=== PATIENT | male | born 1975 | race Caucasian/White ===

== ENCOUNTER 2017-06-07 07:22 | Emergency (ER) | payer SELFPAY ==
[2017-06-07 07:29] VITALS: BP 145/105
--- NOTE | 2017-06-07 07:44 | UC ---
Throat Pain/Nasal Cali HPI - HPI Summary HPI Summary: [address] AND PAIN WITH SWALLOWING. HAD ELEVATED TEMP 99.2 AND CHILLS AT HOME. NO COUGH, EAR PAIN, N/V/D. - History of Current Complaint Chief Complaint: UCGeneralIllness Stated Complaint: THROAT PAIN Time Seen by Provider: 06/07/17 07:35 Hx Obtained From: Patient Onset/Duration: Gradual Onset, Lasting Days, Still Present Severity: Moderate Pain Intensity: 6 Pain Scale Used: 0-10 Numeric Cough: None Associated Signs & Symptoms: Positive: Fever - Allergies/Home Medications Allergies/Adverse Reactions: Allergies Allergy/AdvReac Type Severity Reaction Status Date / Time Penicillins Allergy Hives Verified 06/07/17 07:29 Home Medications: Home Medications Ranitidine HCl [Zantac 75] 1 tab PO DAILY 06/07/17 [History Confirmed 06/07/17] PMH/Surg Hx/FS Hx/Imm Hx Previously Healthy: Yes - Surgical History Surgical History: Yes Surgery Procedure, Year, and Place: inguinal hernia 2009. lasik 2009 - Family History Known Family History: Positive: Hypertension - Social History Alcohol Use: Daily Alcohol Amount: 1/DAY Substance Use Type: Marijuana Smoking Status (MU): Light Every Day Tobacco Smoker Type: Cigarettes Amount Used/How Often: 4 CIG/DAY When Did the Patient Quit Smoking/Using Tobacco: 2012 - Immunization History Most Recent Influenza Vaccination: fall 2014 Review of Systems Constitutional: Fever, Chills ENT: Sore Throat Respiratory: Negative Cardiovascular: Negative Gastrointestinal: Negative All Other Systems Reviewed And Are Negative: Yes Physical Exam Triage Information Reviewed: Yes Appearance: Well-Appearing, No Pain Distress, Well-Nourished Vital Signs: Initial Vital Signs Temp 98.6 F 06/07/17 07:23 Pulse 72 06/07/17 07:23 Resp 16 06/07/17 07:23 BP 145/105 06/07/17 07:23 Pulse Ox 96 06/07/17 07:23 Vital Signs Reviewed: Yes Eyes: Positive: Conjunctiva Clear ENT: Positive: Hearing grossly normal, Pharyngeal erythema, TMs normal, Muffled/ hoarse voice Neck: Positive: Supple, Tenderness @ - SPFL CERVICAL LAD, Enlarged Nodes @ - SPFL CERVICAL LAD Respiratory Exam: Normal Cardiovascular Exam: Normal Abdomen Description: Positive: Soft Musculoskeletal: Positive: No Edema Neurological: Positive: Alert Psychological: Positive: Age Appropriate Behavior Skin: Negative: rashes Throat Pain/Nasal Course/Dx - Differential Dx/Diagnosis Provider Diagnoses: STREP PHARYNGITIS - CLINICAL DX Discharge - Discharge Plan Condition: Stable Disposition: HOME Prescriptions: Cephalexin CAP* [Keflex 500 CAP*] 500 mg PO BID #20 cap Patient Education Materials: Strep Throat (ED) Referrals: Smita RINALDI,Matthew Kohli [Primary Care Provider] - If Needed Additional Instructions: CLINICALLY UOU HAVE STREP SO WE WILL TREAT YOU SUCH. TAKE THE ANTIBIOTIC FOR THE FULL 10 DAYS. OTC CHLORASEPTIC OR CEPACOL LOZENGES FOR SORE THROAT NEEDED ONCE SYMPTOMS RESOLVED - NEW TOOTHBRUSH DO NOT SHARE FOOD, DRINK, UTENSILS
== END 2017-06-07 07:49 | disposition home or self-care (01) ==
LOC: UCEAST 07:22
DX: J02.0 Streptococcal pharyngitis (principal); Z87.891 Personal history of nicotine dependence
CPT/HCPCS: 99212; G0463

== ENCOUNTER 2019-02-20 16:00 | Emergency (ER) | payer OTHER ==
[2019-02-20 16:11] VITALS: BP 140/98
--- NOTE | 2019-02-20 17:32 | UC ---
Throat Pain/Nasal [place] HPI - HPI Summary HPI Summary: 43-year-old male present with two week history of sore throat. Denies fever, chills, nasal congestion, runny nose, ear pain, dysphagia, or cough. - History of Current Complaint Chief Complaint: UCGeneralIllness Stated Complaint: SORE THROAT Time Seen by Provider: 02/20/19 17:15 Hx Obtained From: Patient Pain Intensity: 3 - Allergies/Home Medications Allergies/Adverse Reactions: Allergies Allergy/AdvReac Type Severity Reaction Status Date / Time Penicillins Allergy Itching Verified 02/20/19 16:12 Home Medications: Home Medications Lisinopril TAB* [Prinivil TAB*] 10 mg PO DAILY 02/20/19 [History Confirmed 02/20] PMH/Surg Hx/FS Hx/Imm Hx Previously Healthy: Yes Cardiovascular History: Hypertension GI/ History: Gastroesophageal Reflux - Surgical History Surgical History: Yes Surgery Procedure, Year, and Place: inguinal hernia 2009. lasik 2009 - Family History Known Family History: Positive: Hypertension - Social History Occupation: Employed Full-time Lives: With Family Alcohol Use: Daily Alcohol Amount: 1/DAY Substance Use Type: Marijuana Smoking Status (MU): Light Every Day Tobacco Smoker Type: Cigarettes Amount Used/How Often: 4 CIG/DAY When Did the Patient Quit Smoking/Using Tobacco: 2012 - Immunization History Most Recent Influenza Vaccination: fall 2014 Review of Systems All Other Systems Reviewed And Are Negative: Yes Constitutional: Negative: Fever, Chills Skin: Negative: Rash Eyes: Negative: Drainage, Eye Redness ENT: Positive: Sore Throat. Negative: Nasal Discharge, Sinus Congestion, Sinus Pain/Tenderness Respiratory: Negative: Shortness Of Breath, Cough, Other Cardiovascular: Negative: Palpitations Gastrointestinal: Negative: Abdominal Pain, Vomiting, Diarrhea, Nausea Genitourinary: Positive: Negative Musculoskeletal: Positive: Negative Neurological: Positive: Negative Is Patient Immunocompromised?: No Physical Exam - Summary Physical Exam Summary: GENERAL APPEARANCE: Well developed, well nourished, alert and cooperative, and appears to be in no acute distress. EYES: Conjunctiva clear. No drainage. Vision is grossly intact. EARS: External auditory canals and tympanic membranes clear, hearing grossly intact. NOSE: No nasal discharge. THROAT: Pharyngeal erythema. Tonsils 2+ without exudate, or lesions. Uvula midline. Oral cavity normal. Teeth and gingiva in good general condition. NECK: Neck supple, non-tender. Mild anterior cervical lymphadenopathy. CARDIAC: Normal S1 and S2. No S3, S4 or murmurs. Rhythm is regular. There is no peripheral edema, cyanosis or pallor. Extremities are warm and well perfused. Capillary refill is less than 2 seconds. Peripheral pulses intact. LUNGS: Clear to auscultation without rales, rhonchi, wheezing or diminished breath sounds. ABDOMEN: Positive bowel sounds. Soft, nondistended, nontender. No guarding or rebound. No masses or hepatosplenomegally. MUSKULOSKELETAL: ROM intact to all extremities. No joint erythema or tenderness. Normal muscular development. Normal gait. SKIN: Skin normal color, texture and turgor with no lesions or eruptions. Triage Information Reviewed: Yes Vital Signs: Initial Vital Signs Temp 97.8 F 02/20/19 16:06 Pulse 67 02/20/19 16:06 Resp 16 02/20/19 16:06 BP 140/98 02/20/19 16:06 Pulse Ox 100 02/20/19 16:06 Vital Signs Reviewed: Yes Throat Pain/Nasal Course/Dx - Course Course Of Treatment: 43-year-old male present with two week history of sore throat. Denies fever, chills, nasal congestion, runny nose, ear pain, dysphagia, or cough. Afebrile. Vital signs stable. Exam remarkable for pharyngeal erythema, 2+ tonsils without exudate, and mild anterior cervical lymphadenopathy. Rapid strep test was positive. Patient is allergic with uncertain reaction therefore will treat for strep throat with a course of azithromycin as well as recommend symptomatic treatment. Is to follow-up with his primary care provider if symptoms do not improve in 5 days. Anticipatory guidance and warning symptoms were reviewed with the patient. Verbalizes understanding and agrees with plan of care. - Differential Dx/Diagnosis Differential Diagnosis/HQI/PQRI: Influenza, Pharyngitis, Tonsillitis, URI Provider Diagnosis: Strep pharyngitis Discharge - Sign-Out/Discharge Documenting (check all that apply): Patient Departure All imaging exams completed and their final reports reviewed: No Studies - Discharge Plan Condition: Stable Disposition: HOME Prescriptions: Azithromyxin GABRIEL (NF) [Z-Gabriel (Zithromax) 250 mg tabs #6] 2 tab PO .TODAY, THEN 1 DAILY #6 tab Patient Education Materials: Strep Throat (ED) Referrals: Smita RINALDI,Matthew Kohli [Primary Care Provider] - 5 Days (If no improvement.) Additional Instructions: Your rapid strep test in the clinic today was positive. We will start you on an antibiotic to treat the infection. Start azithromycin 2 tabs today the 1 tab a day for the next 4 days. After you have been on antibiotics for 3 days, throw out your toothbrush and replace with a new one to prevent reinfection. Drink plenty of fluids to avoid dehydration especially if you are running any fever. Use salt water gargles several times a day. Take over the counter acetaminophen (Tylenol) or ibuprofen (Advil, Motrin) according to directions as needed for pain or fever. You may also use Chloraseptic spray or Cepacol lonzenges according to directions which contain a numbing medication and can provide some temporary relief from your sore throat. Return here or follow up with your primary care provider in 5 days if symptoms do not improve. Seek immediate medical attention in the emergency room if you have fever greater than 100.5 F despite taking acetaminophen or ibuprofen, are unable to swallow or develop drooling, are unable to open your mouth fully, are unable to eat or drink, have pain that is not relieved with over the counter pain medication, or have any difficulty breathing. - Billing Disposition and Condition Condition: STABLE Disposition: Home
== END 2019-02-20 17:40 | disposition home or self-care (01) ==
LOC: UCEAST 16:00
DX: J02.0 Streptococcal pharyngitis (principal); B95.0 Streptococcus, group A, as the cause of diseases classified elsewhere; Z88.0 Allergy status to penicillin; I10 Essential (primary) hypertension; F17.210 Nicotine dependence, cigarettes, uncomplicated
CPT/HCPCS: 87651; 99212; G0463

== ENCOUNTER → 2019-02-23 02:48 | Emergency (ER) | payer OTHER ==
[~2019-02-23 02:48] MED LIST: Acetaminophen TAB* 325 MG PO ONE; Clindamycin 900 MG IVPREMIX(* 900 MG/50 ML SDV IV ONE; Dexamethasone IV* 4 MG/ML 1 ML (4 MG) IV SLOW PU ONE; Ketorolac INJ* 30 MG/ML 1 ML VIAL IV PUSH ONE; NS 0.9% 1000 ML** 1,000 ML IV ONE
--- NOTE | 2019-02-23 03:09 | ED ---
Throat Pain/Nasal Congestion - HPI Summary HPI Summary: Pt is a 43 y/o male brought in by EMS who presents to the ED c/o sore throat. 2 weeks ago he began to have cold symptoms, including sore throat, SOB, and fever. At 2:00 this morning he woke up with worsening throat pain, dysphagia, and difficulty breathing. Pain is rated a 6/10 in severity and is described as aching and burning. EMS noted stridor. He went to the and was diagnosed with strep throat. Pt was prescribed Zithromax, however his symptoms have not improved since. Pt was in [place] for the past two weeks. Vital signs while in room: HR 117 bpm, BP 154/103. He is a smoker. - History of Current Complaint Chief Complaint: EDRespiratoryDistress Time Seen by Provider: 02/23/19 02:52 Hx Obtained From: Patient Onset/Duration: Gradual Onset, Lasting Weeks - 2, Worse Since Severity: Moderate - 6/10 Associated Signs And Symptoms: Positive: Dysphagia Cough: None Related History: Smoking - Allergies/Home Medications Allergies/Adverse Reactions: Allergies Allergy/AdvReac Type Severity Reaction Status Date / Time Penicillins Allergy Itching Verified 02/20/19 16:12 PMH/Surg Hx/FS Hx/Imm Hx Cardiovascular History: Reports: Hx Hypertension Respiratory History: Denies: Hx Asthma - Surgical History Surgery Procedure, Year, and Place: inguinal hernia 2009. las2009 Infectious Disease History: No Infectious Disease History: Reports: Traveled Outside the [place] in Last 30 Days Denies: Hx Clostridium Difficile, Hx Hepatitis, Hx Human Immunodeficiency Virus (HIV), Hx of Known/Suspected MRSA, Hx Shingles, Hx Tuberculosis, Hx Known/ Suspected VRE, Hx Known/Suspected VRSA, History Other Infectious Disease - Family History Known Family History: Positive: Hypertension - Social History Alcohol Use: Daily Alcohol Amount: 1/DAY Hx Substance Use: Yes Substance Use Type: Reports: Marijuana Hx Tobacco Use: Yes Smoking Status (MU): Light Every Day Tobacco Smoker Type: Cigarettes Amount Used/How Often: 4 CIG/DAY Review of Systems Positive: Fever Positive: Sore Throat, Other - dysphagia Positive: Shortness Of Breath All Other Systems Reviewed And Are Negative: Yes Physical Exam - Summary Physical Exam Summary: VITAL SIGNS: Reviewed. GENERAL: Patient is a well-developed and nourished MALE who is lying comfortable in the stretcher. Patient is not in any acute respiratory distress. HEAD AND FACE: No signs of trauma. No ecchymosis, hematomas or skull depressions. No sinus tenderness. EYES: PERRLA, EOMI x 2, No injected conjunctiva, no nystagmus. EARS: Hearing grossly intact. Ear canals and tympanic membranes are within normal limits. MOUTH: Pharyngeal erythema, no exudate. NECK: Supple, trachea is midline, no JVD, no carotid bruit, no c-spine tenderness, upper cervical lymph node tenderness without swelling, neck with full ROM. CHEST: Symmetric, no tenderness at palpation LUNGS: Clear to auscultation bilaterally. No wheezing or crackles. CVS: Regular rate and rhythm, S1 and S2 present, no murmurs or gallops appreciated. ABDOMEN: Soft, non-tender. No signs of distention. No rebound no guarding, and no masses palpated. Bowel sounds are normal. EXTREMITIES: FROM in all major joints, no edema, no cyanosis or clubbing. NEURO: Alert and oriented x 3. No acute neurological deficits. Speech is normal and follows commands. SKIN: Dry and warm Triage Information Reviewed: Yes Vital Signs On Initial Exam: Initial Vitals Temp Pulse Resp BP Pulse Ox 100.3 F 118 20 154/103 99 02/23/19 02:55 02/23/19 02:55 02/23/19 02:55 02/23/19 02:55 02/23/19 02:55 Vital Signs Reviewed: Yes Diagnostics - Vital Signs Vital Signs Temp Pulse Resp BP Pulse Ox 02/23/19 02:55 100.3 F 118 20 154/103 99 - Laboratory Lab Statement: Any lab studies that have been ordered have been reviewed, and results considered in the medical decision making process. Re-Evaluation - Re-Evaluation First Eval Re-Evaluation Time: 04:35 Change: Improved Comment: Pt feels much better. EENT Course/Dx - Course Course Of Treatment: Pt is a 43 y/o male brought in by EMS who presents to the ED c/o sore throat, dysphagia, and difficulty breathing. He has been on Zithromax for 2 days without relief. A physical exam revealed pharyngeal erythema without exudate, upper cervical lymph node tenderness without swelling. In the course he was given Tylenol, Clindamycin, Decadron, Toradol, and fluids which improved his symptoms. Pt will be discharged with a final dx of pharyngitis. Pt is agreeable with this plan. - Diagnoses Provider Diagnoses: Pharyngitis Discharge - Sign-Out/Discharge Documenting (check all that apply): Patient Departure - Discharge Patient Received Moderate/Deep Sedation with Procedure: No - Discharge Plan Condition: Improved Disposition: HOME Prescriptions: Clindamycin Cap(NF) [Clindamycin Cap 300 mg Cap(NF)] 300 mg PO Q6H #30 cap predniSONE TAB* [Deltasone TAB*] 50 mg PO DAILY #5 tab Patient Education Materials: Pharyngitis (ED) Referrals: Smita RINALDI,Matthew Kohli [Primary Care Provider] - (1-2 days) Additional Instructions: PLEASE RETURN TO THE ED IMMEDIATELY FOR WORSENING OR CONCERNING SYMPTOMS. - Attestation Statements Document Initiated by Scribe: Yes Documenting Scribe: Brandi Santoyo Provider For Whom Umeshibe is Documenting (Include Credential): Malaika Fields MD Scribe Attestation: IBrandi, scribed for Malaika Fields MD on 02/23/19 at 0441. Status of Scribe Document: Ready
[2019-02-23 05:19] VITALS: BP 133/81
== END | disposition home or self-care (01) ==
LOC: ED 02:48
DX: J02.9 Acute pharyngitis, unspecified (principal); F17.210 Nicotine dependence, cigarettes, uncomplicated; Z88.0 Allergy status to penicillin
CPT/HCPCS: 96365; 96375; 99283; A9270-GY; J1100; J1885

== ENCOUNTER 2019-02-24 11:10 | Emergency (ER) | payer OTHER ==
[2019-02-24 11:33] VITALS: BP 143/86
--- NOTE | 2019-02-24 12:10 | UC ---
Throat Pain/Nasal [place] HPI - HPI Summary HPI Summary: 43-year-old male comes in with a chief complaint of sore throat. Patient's had a sore throat for about 2-1/2-3 weeks. 5 days ago came here to clinic and was diagnosed with strep throat and started on azithromycin. He is pain continued and he felt like his throat was closing and he went to the emergency department in the [facility] of February 23, 2019. There he was treated with IV Decadron Toradol IV fluids and started on clindamycin. His breathing and swallowing had improved. Went home on prednisone 50 mg by mouth daily and also on clindamycin. Been using ibuprofen and Tylenol for pain. Overnight the pain is getting worse in his throat. It hurts to swallow and is having a hard time taking in his medications food and liquids. He feels like the swelling is less than [address] here he did cough up one of his Stas is trying to swallow which in turn made swallowing easily her. At this time he is not worried about airway compromise. - History of Current Complaint Chief Complaint: UCRespiratory Stated Complaint: SORE THROAT Time Seen by Provider: 02/24/19 11:50 Pain Intensity: 9 - Allergies/Home Medications Allergies/Adverse Reactions: Allergies Allergy/AdvReac Type Severity Reaction Status Date / Time Penicillins Allergy Itching Verified 02/24/19 11:29 PMH/Surg Hx/FS Hx/Imm Hx Previously Healthy: Yes Cardiovascular History: Hypertension - Surgical History Surgical History: Yes Surgery Procedure, Year, and Place: inguinal hernia 2009. [facility] 2009 - Family History Known Family History: Positive: None, Hypertension - Social History Alcohol Use: Daily Alcohol Amount: 1/DAY Substance Use Type: Marijuana Smoking Status (MU): Former Smoker Type: Cigarettes Amount Used/How Often: 4 CIG/DAY When Did the Patient Quit Smoking/Using Tobacco: 2012 Household Exposure Type: Cigarettes - Immunization History Most Recent Influenza Vaccination: fall 2014 Review of Systems All Other Systems Reviewed And Are Negative: Yes Constitutional: Positive: Fever Skin: Positive: Negative Eyes: Positive: Negative ENT: Positive: Sore Throat Respiratory: Positive: Other - see hpi Cardiovascular: Positive: Negative Gastrointestinal: Positive: Negative Motor: Positive: Negative Neurovascular: Positive: Negative Musculoskeletal: Positive: Negative Neurological: Positive: Negative Psychological: Positive: Negative Is Patient Immunocompromised?: No Physical Exam Triage Information Reviewed: Yes Appearance: Well-Appearing, Well-Nourished, Pain Distress - mild with swallowing Vital Signs: Initial Vital Signs Temp 99.4 F 02/24/19 11:22 Pulse 82 02/24/19 11:22 Resp 18 02/24/19 11:22 BP 143/86 02/24/19 11:22 Pulse Ox 97 02/24/19 11:22 Vital Signs Reviewed: Yes Eye Exam: Normal Eyes: Positive: Conjunctiva Clear ENT: Positive: Pharyngeal erythema, Tonsillar swelling - 2+ b/l, Uvula midline, Other - no peritonsillar abscess on exam. Negative: Muffled voice, Hoarse voice Neck: Positive: Supple Respiratory: Positive: Lungs clear, Normal breath sounds, No respiratory distress. Negative: Stridor Cardiovascular: Positive: RRR Musculoskeletal Exam: Normal Musculoskeletal: Positive: Strength Intact, ROM Intact Neurological Exam: Normal Neurological: Positive: Alert, Muscle Tone Normal Psychological Exam: Normal Psychological: Positive: Age Appropriate Behavior Skin Exam: Normal Throat Pain/Nasal Course/Dx - Course Course Of Treatment: No evidence of airway compromise in clinic. Patient feels like the swelling is improved after his emergency department visit and starting on the steroids and clindamycin. I prescribed hydrocodone to be used as needed and also Magic mouthwash including lidocaine for swish and swallow 4 times a day as needed. Also [id number] medications as needed. Patient knows that if he has any further difficulty with swallowing or breathing is to go directly to the emergency department. If his symptoms do not improve completely the plan is to follow-up with ENT. - Differential Dx/Diagnosis Provider Diagnosis: Sore throat Discharge - Sign-Out/Discharge Documenting (check all that apply): Patient Departure All imaging exams completed and their final reports reviewed: No Studies - Discharge Plan Condition: Stable Disposition: HOME Prescriptions: HYDROcodone/ACETAMIN 5-325 MG* [[place] 5-325 TAB*] 1 tab PO Q4H PRN #20 tab MDD 6 PRN Reason: Pain Magic Mouth Was-ANGEL/MAAL/LIDO* 5 ml SWISH SWAL QID PRN #120 ml MDD 20ML PRN Reason: Pain Patient Education Materials: Pharyngitis (ED) Referrals: Smita RINALDI,Matthew Kohli [Primary Care Provider] - Ty Moralez MD [Medical Doctor] - Additional Instructions: FOLLOW UP WITH ENT IF NOT COMPLETELY IMPROVED. GO TO THE EMERGENCY DEPARTMENT FOR WORSENING OF YOUR CONDITION; DIFFICULTY WITH SWALLOWING OR BREATHING, FEVER, YOU FEEL ILL OR QUESTIONS OR CONCERNS. - Billing Disposition and Condition Condition: STABLE Disposition: Home
== END 2019-02-24 12:21 | disposition home or self-care (01) ==
LOC: UCEAST 11:10
DX: J02.9 Acute pharyngitis, unspecified (principal); Z87.891 Personal history of nicotine dependence; I10 Essential (primary) hypertension; Z88.0 Allergy status to penicillin
CPT/HCPCS: 99212; G0463

== ENCOUNTER 2019-06-09 08:07 | Emergency (ER) | payer OTHER ==
[2019-06-09 08:18] VITALS: BP 118/89
--- NOTE | 2019-06-09 08:23 | UC ---
Throat Pain/Nasal Cali HPI - HPI Summary HPI Summary: 43-year-old male presents with 4 day history of sore throat. Denies fever, chills, dysphagia, ear pain, nasal congestion, runny nose, cough, abdominal pain , nausea, or vomiting. - History of Current Complaint Chief Complaint: UCGeneralIllness Stated Complaint: THROAT PAIN Time Seen by Provider: 06/09/19 08:17 Hx Obtained From: Patient Pain Intensity: 2 - Allergies/Home Medications Allergies/Adverse Reactions: Allergies Allergy/AdvReac Type Severity Reaction Status Date / Time Penicillins Allergy Itching Verified 06/09/19 08:12 PMH/Surg Hx/FS Hx/Imm Hx Cardiovascular History: Hypertension GI/ History: Gastroesophageal Reflux - Surgical History Surgical History: Yes Surgery Procedure, Year, and Place: inguinal hernia 2009. lasik 2009 - Family History Known Family History: Positive: Hypertension - Social History Occupation: Employed Full-time Lives: With Family Alcohol Use: Daily Alcohol Amount: 1/DAY Substance Use Type: Marijuana Substance Use Comment - Amount & Last Used: occasional Smoking Status (MU): Light Every Day Tobacco Smoker Type: Cigarettes Amount Used/How Often: 1 PPW When Did the Patient Quit Smoking/Using Tobacco: 2012 Household Exposure Type: Cigarettes - Immunization History Most Recent Influenza Vaccination: fall 2014 Review of Systems All Other Systems Reviewed And Are Negative: Yes Constitutional: Negative: Fever, Chills Skin: Negative: Rash Eyes: Negative: Drainage, Eye Redness ENT: Positive: Sore Throat. Negative: Ear Ache, Nasal Discharge, Sinus Congestion, Sinus Pain/Tenderness Respiratory: Negative: Cough Cardiovascular: Positive: Negative Gastrointestinal: Negative: Abdominal Pain, Vomiting, Nausea Genitourinary: Positive: Negative Musculoskeletal: Positive: Negative Neurological: Positive: Negative Psychological: Positive: Negative Is Patient Immunocompromised?: No Physical Exam - Summary Physical Exam Summary: GENERAL APPEARANCE: Well developed, well nourished, alert and cooperative, and appears to be in no acute distress. EYES: Conjunctiva clear. No drainage. PERRL, EOM intact. Vision is grossly intact. EARS: External auditory canals and tympanic membranes clear, hearing grossly intact. NOSE: No nasal discharge. THROAT: Pharyngeal erythema. 2+ tonsils without exudate or lesions. Uvula midline. Oral cavity normal. Teeth and gingiva in good general condition. NECK: Neck supple, non-tender with mild anterior cervical lymphadenopathy. CARDIAC: Normal S1 and S2. No S3, S4 or murmurs. Rhythm is regular. There is no peripheral edema, cyanosis or pallor. Extremities are warm and well perfused. Capillary refill is less than 2 seconds. Peripheral pulses intact. LUNGS: Clear to auscultation without rales, rhonchi, wheezing or diminished breath sounds. ABDOMEN: Positive bowel sounds. Soft, nondistended, nontender. No guarding or rebound. No masses or hepatosplenomegally. MUSKULOSKELETAL: ROM intact to all extremities. No joint erythema or tenderness. Normal muscular development. Normal gait. SKIN: Skin normal color, texture and turgor with no lesions or eruptions. Triage Information Reviewed: Yes Vital Signs: Initial Vital Signs Temp 97.8 F 06/09/19 08:13 Pulse 57 06/09/19 08:13 Resp 16 06/09/19 08:13 BP 118/89 06/09/19 08:13 Pulse Ox 97 06/09/19 08:13 Vital Signs Reviewed: Yes Throat Pain/Nasal Course/Dx - Course Course Of Treatment: 43-year-old male presents with 4 day history of sore throat. Denies fever, chills, dysphagia, ear pain, nasal congestion, runny nose, cough, abdominal pain , nausea, or vomiting. Afebrile. Vital signs stable. Patient had pharyngeal erythema, 2+ tonsils without exudate, mild anterior cervical lymphadenopathy and otherwise unremarkable exam. Rapid strep test was positive. Patient is penicillin allergic and recommended treatment with a azithromycin however the patient states that he had an episode of strep throat approximately 3 months ago that he felt was ineffectively treated by a azithromycin and is requesting treatment with clindamycin. He is to take clindamycin 300 mg 3 times a day for 10 days. He is to follow-up with his primary care provider in 3-5 days if symptoms are not improving. Anticipatory guidance and warning symptoms were reviewed with the patient. Verbalizes understanding and agrees with plan of care. - Differential Dx/Diagnosis Differential Diagnosis/HQI/PQRI: Pharyngitis, Sinusitis, Tonsillitis, URI Provider Diagnosis: Strep pharyngitis Discharge - Sign-Out/Discharge Documenting (check all that apply): Patient Departure All imaging exams completed and their final reports reviewed: No Studies - Discharge Plan Condition: Stable Disposition: HOME Prescriptions: Clindamycin HCl 300 mg PO TID #30 capsule Patient Education Materials: Strep Throat (ED) Referrals: Smita RINALDI,Matthew Kohli [Primary Care Provider] - Additional Instructions: Your rapid strep test in the clinic today was positive. We will start you on an antibiotic to treat the infection. Start clindamycin 300 mg 1 tab three times a day for 10 days. After you have been on antibiotics for 3 days, throw out your toothbrush and replace with a new one to prevent reinfection. Drink plenty of fluids to avoid dehydration especially if you are running any fever. Use salt water gargles several times a day. Take over the counter acetaminophen (Tylenol) or ibuprofen (Advil, Motrin) according to directions as needed for pain or fever. You may also use Chloraseptic spray or Cepacol lonzenges according to directions which contain a numbing medication and can provide some temporary relief from your sore throat. Return here or follow up with your primary care provider in 3-5 days if symptoms do not improve. Seek immediate medical attention in the emergency room if you have fever greater than 100.5 F despite taking acetaminophen or ibuprofen, are unable to swallow or develop drooling, are unable to open your mouth fully, are unable to eat or drink, have pain that is not relieved with over the counter pain medication, have any difficulty breathing, or any worsening of symptoms. - Billing Disposition and Condition Condition: STABLE Disposition: Home - Attestation Statements Provider Attestation: I was available for consult. This patient was seen by the KENNETH. The patient was not presented to, seen by, or examined by me. -Steven
== END 2019-06-09 08:49 | disposition home or self-care (01) ==
LOC: UCEAST 08:07
DX: J02.0 Streptococcal pharyngitis (principal); Z88.0 Allergy status to penicillin; I10 Essential (primary) hypertension; F17.210 Nicotine dependence, cigarettes, uncomplicated
CPT/HCPCS: 87651; 99212; G0463

== ENCOUNTER 2019-06-24 14:55 | Emergency (ER) | payer OTHER ==
--- NOTE | 2019-06-24 15:06 | UC ---
Throat Pain/Nasal Cali HPI - HPI Summary HPI Summary: 43 yo male presents with sore throat. He was seen here on 06/09 and had a sore throat with positive strep test. He was treated with clindamycin, but says he skipped 4 days because he misplaced his prescription. He found it and resumed it for the 4 days he missed. Last dose of anbx was 5 days ago. He is still having a sore throat, but says it is improved. He is eating, drinking, and tolerating po well. Denies fever, chills, sinus symptoms, cough, rash, abdominal pain, n/v. Of note, his blood pressure is quite high today. He does have a hx of HTN and is being treated with lisinopril. He took his medication this morning as usual. He saw his PCP a week ago and tells me that his BP was normal. Looking back at his last 2 visits in the , his BP has been elevated, but only mildly so. He is having no headache, dizziness, vision changes, weakness, numbness, SOB, chest pain. - History of Current Complaint Stated Complaint: POSS STREP STILL Time Seen by Provider: 06/24/19 15:06 Hx Obtained From: Patient Onset/Duration: Gradual Onset Severity: Moderate Pain Intensity: 5 Pain Scale Used: 0-10 Numeric - Allergies/Home Medications Allergies/Adverse Reactions: Allergies Allergy/AdvReac Type Severity Reaction Status Date / Time Penicillins Allergy Itching Verified 06/24/19 15:09 PMH/Surg Hx/FS Hx/Imm Hx Cardiovascular History: Hypertension GI/ History: Gastroesophageal Reflux - Surgical History Surgical History: Yes Surgery Procedure, Year, and Place: inguinal hernia 2009. lasik 2009 - Family History Known Family History: Positive: Hypertension - Social History Lives: With Family Alcohol Use: Daily Alcohol Amount: 1/DAY Substance Use Type: Marijuana Substance Use Comment - Amount & Last Used: occasional Smoking Status (MU): Light Every Day Tobacco Smoker Type: Cigarettes Amount Used/How Often: 1 PPW When Did the Patient Quit Smoking/Using Tobacco: 2012 Household Exposure Type: Cigarettes - Immunization History Most Recent Influenza Vaccination: fall 2014 Review of Systems All Other Systems Reviewed And Are Negative: Yes Constitutional: Positive: Negative Skin: Positive: Negative Eyes: Positive: Negative ENT: Positive: Sore Throat Respiratory: Positive: Negative Cardiovascular: Positive: Negative Neurovascular: Positive: Negative Neurological: Positive: Negative Psychological: Positive: Negative Physical Exam - Summary Physical Exam Summary: GENERAL: NAD. WDWN. No pain distress. SKIN: No rashes, sores, lesions, or open wounds. HEENT: Head: AT/NC Eyes: Conjunctiva clear without inflammation or discharge. Ears: Hearing grossly normal. TMs intact, no bulging, erythema, or edema. Nose: Nasal mucosa pink and moist. NTTP maxillary and frontal sinus. Throat: Posterior oropharynx mild erythema and 2+ tonsillar enlargement. No exudates. Uvula midline. No hoarse voice or muffled voice. NECK: Supple. Left tonsillar LAD mild TTP. CHEST: CTAB. No r/r/w. No accessory muscle use. Breathing comfortably and in no distress. CV: RRR. Without m/r/g. Pulses intact. Cap refill <2seconds NEURO: A&Ox3. 3 word recall, remote, recent memory, ability to follow 2-step directions, and attention intact. CN: II: Peripheral christianson intact. Vision normal. III, IV, : EOMI. No nystagmus. PERRLA. V: Sensations intact and symmetric. Opens mouth and clenches teeth. VII: No facial asymmetry. Forehead wrinkles. Grins, shuts eyes, frowns, puffs cheeks. VIII: Hearing intact to finger rub. IX, X: Swallows and coughs. Uvula midline. XI: Shrugs shoulders. Turns head against resistance. XII: No tongue deviation. Hdsumt-dy-vajf are intact. Gait with normal base. Romberg: maintains balance, no pronator drift. Normal speech. No facial drooping. PSYCH: Age appropriate behavior. Triage Information Reviewed: Yes Vital Signs: Vital Signs: Temp Pulse Resp BP Pulse Ox 98.8 F 69 16 181/117 99 06/24/19 15:05 06/24/19 15:05 06/24/19 15:05 06/24/19 15:05 06/24/19 15:05 Laboratory Tests 06/24/19 15:16 Group A Strep Rapid Positive A Vital Signs Reviewed: Yes Throat Pain/Nasal Course/Dx - Course Course Of Treatment: POC strep positive. Will treat with keflex for 10 days. Regarding his elevated BP - he is currently asymptomatic. Recheck BP was similar. He saw his PCP 1 week ago and BP was "good" per pt. His last 2 visits here at the his BP was only slightly elevated. He states that he's had a stressful day so far today and blames today's events on his BP. He has an electronic BP cuff at home - I recommended that he recheck this tonight and tomorrow morning and if still elevated to call his PCP. If he becomes symptomatic such as headache, dizziness, numbness, weakness, SOB, or chest pain to go to the ER immediately. - Differential Dx/Diagnosis Provider Diagnosis: Strep throat, HTN (hypertension) Discharge - Sign-Out/Discharge Documenting (check all that apply): Patient Departure All imaging exams completed and their final reports reviewed: No Studies - Discharge Plan Condition: Stable Disposition: HOME Prescriptions: Cephalexin CAP* [Keflex CAP*] 500 mg PO BID #20 cap Patient Education Materials: Strep Throat (ED) Referrals: Smita RINALDI,Matthew Kohli [Primary Care Provider] - Ty Moralez MD [Medical Doctor] - As Soon As Possible Additional Instructions: If you develop a fever, shortness of breath, chest pain, new or worsening symptoms - please call your PCP or go to the ED immediately. Your blood pressure was high at todays visit. Please see your primary provider within 4 weeks for recheck and re-evaluation. -- If you develop a headache, dizziness, weakness, numbness, shortness of breath , or chest pain - please go to the ER immediately Please call ENT at the number below to schedule an appointment for a recheck of your sore throat - Billing Disposition and Condition Condition: STABLE Disposition: Home - Attestation Statements Provider Attestation: I was available for consult. This patient was seen by the KENNETH. The patient was not presented to, seen by, or examined by me. -Steven
[2019-06-24 15:09] VITALS: BP 181/117
--- OUTSIDE RECORDS SUMMARY | 2019-06-25 01:24 | XMS REPORT | Continuity of Care Document ---
:1975 External Reference #:[id number] Author Name Matthew Ordoñez MD Address [address] [place] [address] Problems Active Problems Provider Date Migraine without aura, not refractory Matthew Ordoñez MD Onset: 08/24/2002 Gastroesophageal reflux disease Matthew Ordoñez MD Onset: 07/05/2018 Social History Type Date Description Comments Sex Unknown Tobacco Use Start: Unknown End: Quit Unknown Tobacco Use Start: Unknown End: Former Cigarette Smoker Unknown 5-10 Cigarettes Daily Smoking Status Reviewed: 01/12/14 Quit ETOH Use Occasionally consumes 1 drink daily alcohol Seat Belt/Car Seat Always uses seat belt Allergies, Adverse Reactions, Alerts Active Allergies Reaction Severity Comments Date Penicillin rash 08/24/2002 Medications Active Medications SIG Qnty Indications Ordering Provider Date Lisinopril 1 by mouth every 30tabs I10 Matthew Ordoñez 01/17/2019 10mg Tablets day htn Xanax 1 tab by mouth 1 14tabs F41.9 Matthew Ordoñez 05/05/2017 1mg Tablets hour before flying may be repeated after 6 hours Zyrtec Allergy 1 by mouth every Unknown 10mg day as needed Tablets Zantac 150 Maximum 1 tab daily gerd 90tabs Matthew Ordoñez Strength 150mg Tablets Clindamycin HCL 1 by mouth three Unknown 300mg times a day for Capsules 10 days Immunizations CPT Code Status Date Vaccine Lot # [id number] Given 08/03/2018 Flu/Fluzone Iiv4 3Yrs And Older [id number] Given 01/08/2010 Adacel (TdaP) [id number] Given 09/14/2004 Hep B Vac, 20Yrs-Up 84862 Given 04/16/2004 Hep B Vac, 20Yrs-Up 59675 Given 03/09/2004 Hep B Vac, 20Yrs-Up 43838 Given 03/09/2004 Td-Tetanus/Diphtheria /Adult (Records Only) 01875 Given 03/09/2004 Hep A Vac, Adult ([employer]) 16092 Given 10/03/2003 Fluvirin/Trivalent Iiv3 4Yr & Older Vital Signs Date Vital Result Comment 06/15/2019 1:41pm Weight 184.00 lb Height 68.75 inches 5'8.75" BP Systolic 116 mmHg BP Diastolic 82 mmHg Heart Rate 62 /min Regular BMI (Body Mass Index) 27.4 kg/m2 Z68.27 A, 27.0-27.9 05/08/2019 3:37pm Weight 183.00 lb Height 68.5 inches 5'8.50" BP Systolic 130 mmHg BP Diastolic 88 mmHg Heart Rate 52 /min BMI (Body Mass Index) 27.4 kg/m2 Results Description No Information Available Procedures Description No Information Available Medical Devices Description No Information Available Encounters Type Date Location Provider Dx Diagnosis Office Visit 06/15/2019 Antonio Ordoñez Z00.00 Encntr for 1:40p [facility]icians Luz Elena RINALDI general adult medical exam w/o abnormal findings I10 Essential (primary) hypertension J02.0 Streptococcal pharyngitis M25.561 Pain in right knee Z68.27 Body mass index (BMI) 27.0-27.9, adult Office Visit 05/08/2019 3:20p [facility] ( primary) Physicians Luz Elena Ordoñez MD hypertension M25.561 Pain in right knee Z68.27 Body mass index (BMI) 27.0-27.9, adult Office Visit 01/17/2019 1:30p [facility] ( primary) Physicians Luz Elena Ordoñez MD hypertension Z68.27 Body mass index (BMI) 27.0-27.9, adult Assessments Date Code Description Provider 06/15/2019 Z00.00 Encounter for general adult medical examination Matthew Ordoñez MD without abnormal findings 06/15/2019 I10 Essential (primary) hypertension Matthew Ordoñez MD 06/15/2019 J02.0 Streptococcal pharyngitis Matthew Ordoñez MD 06/15/2019 M25.561 Pain in right knee Matthew Ordoñez MD 06/15/2019 Z68.27 Body mass index (BMI) 27.0-27.9, adult Matthew Ordoñez MD 05/08/2019 I10 Essential (primary) hypertension Matthew Ordoñez MD 05/08/2019 M25.561 Pain in right knee Matthew Ordoñez MD 05/08/2019 Z68.27 Body mass index (BMI) 27.0-27.9, adult Matthew Ordoñez MD 01/17/2019 I10 Essential (primary) hypertension Matthew Ordoñez MD 01/17/2019 Z68.27 Body mass index (BMI) 27.0-27.9, adult Matthew Ordoñez MD Plan of Treatment 06/15/2019 - Matthew Ordoñez MDZ00.00 Encounter for general adult medical examination without abnormal findingsNew Labs:Annual Wellness Panel, Ordered: Comments:PROVIDED REASSURANCE REGARDING PRESENT GOOD HEALTH, ENCOURAGED ONGOING SAFETY, PREVENTIVE BEHAVIORS,AND HEALTHY DIET/REGULAR EXERCISE. DISCUSSED HEALTH CARE PROXY AND ENCOURAGED COMPLETED COPY TO BE APPENDED TO CHART.Follow up:.I10 Essential (primary) hypertensionFollow up:.Miscellaneous: INSTRUCTIONS GIVEN INCLUDING IMPORTANCE OF LIFESTYLE, INCLUDING DIET AND GHHUJSUYP50.0 Streptococcal pharyngitisComments:Improving on Clinda.Req he call if sx do not resolve entirely.Follow up:.M25.561 Pain in right kneeComments:? pos Mcmurrys.Possible occult meniscal injury.Obs and fu if sx worsen prn.Follow up:.Z68.27 Body mass index (BMI) 27.0-27.9, adultComments:stable.Follow up: .AllFollow up:. Functional Status Description No Information Available Mental Status Description No Information Available Referrals Description No Information Available
== END 2019-06-24 15:43 | disposition home or self-care (01) ==
LOC: UCEAST 14:55
DX: J02.0 Streptococcal pharyngitis (principal); I10 Essential (primary) hypertension; Z91.14 Patient's other noncompliance with medication regimen; F17.210 Nicotine dependence, cigarettes, uncomplicated; Z88.0 Allergy status to penicillin
CPT/HCPCS: 87651; 99212; G0463

== ENCOUNTER 2020-01-18 10:23 | Emergency (ER) | payer OTHER ==
[2020-01-18 11:36] VITALS: BP 147/98
--- NOTE | 2020-01-18 11:41 | UC ---
FLU HPI - HPI Summary HPI Summary: 44 yo male presents with flu-like symptoms. He tells me that on 01/13 he had loose stools and diarrhea. On 01/14 he developed body aches, fatigue, and dry cough. Reports fever of 102F 2 days ago, but none since. He has been taking tylenol and ibuprofen with good relief. Today he is feeling better, but feels tired overall. He is eating and drinking well. Denies SOB, chest pain, rash, abdominal pain, vomiting. Did not get a flu shot this year. Works at [employer]. - History of Current Complaint Chief Complaint: UCGeneralIllness Stated Complaint: HEAD / CHEST CONGESTION FEVER Time Seen by Provider: 01/18/20 11:41 Hx Obtained From: Patient Onset/Duration: Sudden Onset Severity Currently: Mild Severity Initially: Moderate Pain Intensity: 1 Pain Scale Used: 0-10 Numeric - Allergy/Home Medications Allergies/Adverse Reactions: Allergies Allergy/AdvReac Type Severity Reaction Status Date / Time Penicillins Allergy Itching Verified 01/18/20 11:37 Home Medications: Home Medications Lisinopril TAB* [Prinivil TAB*] 10 mg PO DAILY 02/20/19 [History Confirmed 01/17] Famotidine TAB* [Pepcid 20 MG TAB*] 1 tab PO DAILY 01/18/20 [History Confirmed 01/18/20] PMH/Surg Hx/FS Hx/Imm Hx Cardiovascular History: Hypertension - Surgical History Surgical History: Yes Surgery Procedure, Year, and Place: inguinal hernia 2009. lasik 2009 - Family History Known Family History: Positive: Hypertension - Social History Alcohol Use: Daily Alcohol Amount: 1/DAY Substance Use Type: Marijuana Substance Use Comment - Amount & Last Used: occasional Smoking Status (MU): Light Every Day Tobacco Smoker Type: Cigarettes Amount Used/How Often: 1 PPW When Did the Patient Quit Smoking/Using Tobacco: 2013 Household Exposure Type: Cigarettes - Immunization History Most Recent Influenza Vaccination: fall 2014 Review of Systems All Other Systems Reviewed And Are Negative: No Constitutional: Positive: Fever, Chills, Fatigue, Other - Body aches Skin: Positive: Negative Eyes: Positive: Negative ENT: Positive: Negative Respiratory: Positive: Cough Cardiovascular: Positive: Negative Gastrointestinal: Positive: Diarrhea - resolved Genitourinary: Positive: Negative Neurological/Mental Status: Positive: Negative Psychological: Positive: Negative Physical Exam - Summary Physical Exam Summary: GENERAL: NAD. WDWN. No pain distress. SKIN: No rashes, sores, lesions, or open wounds. HEENT: Head: AT/NC Eyes: EOM intact. Conjunctiva clear without inflammation or discharge. Ears: Hearing grossly normal. TMs intact, no bulging, erythema, or edema. Nose: Nasal mucosa pink and moist. NTTP maxillary and frontal sinus. Throat: Posterior oropharynx without exudates, erythema, or tonsillar enlargement. Uvula midline. NECK: Supple. Nontender. No lymphadenopathy. CHEST: CTAB. No r/r/w. No accessory muscle use. Breathing comfortably and in no distress. CV: RRR. Pulses intact. Cap refill <2seconds NEURO: Alert. PSYCH: Age appropriate behavior. Triage Information Reviewed: Yes Vital Signs: Initial Vital Signs Temp 99.1 F 01/18/20 11:34 Pulse 81 01/18/20 11:34 Resp 18 01/18/20 11:34 BP 147/98 01/18/20 11:34 Pulse Ox 100 01/18/20 11:34 Laboratory Tests 01/18/20 12:19 Influenza A (Rapid) Positive H Vital Signs Reviewed: Yes Flu Course/Dx - Course Course Of Treatment: POC flu positive. He is feeling better and is outside window for tamiflu. Advised continued supportive care. - Differential Dx/Diagnosis Provider Diagnosis: Influenza Discharge ED - Sign-Out/Discharge Documenting (check all that apply): Patient Departure All imaging exams completed and their final reports reviewed: No Studies - Discharge Plan Condition: Stable Disposition: HOME Patient Education Materials: Influenza (ED) Referrals: Smita RINALDI,Matthew Kohli [Primary Care Provider] - Additional Instructions: Most people with the flu recover within one to two weeks without treatment. However, serious complications of the flu can occur. Go to the ER immediately if you: -- You feel short of breath or have trouble breathing -- You have pain or pressure in your chest or stomach -- You have signs of being dehydrated, such as dizziness when standing or not passing urine -- You feel confused -- You cannot stop vomiting or you cannot drink enough fluids There are several groups of people who are at increased risk for flu complications. These include women, young children (<5 years of age and especially <2 years of age), people older than 65 years of age, and people with certain diseases such as chronic lung disease (such as asthma), heart disease, diabetes, immunosuppressing conditions (such as HIV infection or transplantation), and some other diseases. Treat symptoms Treating the symptoms of influenza can help you to feel better but will not make the flu go away faster. -- Rest until the flu is fully resolved, especially if the illness has been severe. -- Fluids Drink enough fluids so that you do not become dehydrated. One way to brake repairer hydraulic if you are drinking enough is to look at the color of your urine. Normally, urine should be light yellow to nearly colorless. If you are drinking enough, you should pass urine every three to five hours. -- Acetaminophen (sample brand name: Tylenol) can relieve fever, headache, and muscle aches. Aspirin and medicines that include aspirin (eg, bismuth subsalicylate [sample brand name: Pepto-Bismol]) are not recommended for children under 18 because aspirin can lead to a serious disease called Sharon syndrome. -- Cough medicines are not usually helpful; cough usually resolves without treatment. We do not recommend cough or cold medicine for children under age 6 years. Antiviral treatment Antiviral medicines can be used to treat or prevent influenza. When used as a treatment, the medicine does not eliminate flu symptoms, although it can reduce the severity and duration of symptoms by about one day. Not every person with influenza needs an antiviral medicine, but some people do; the decision is based upon several factors. If you are severely ill and/or have risk factors for developing complications of influenza, you will need an antiviral agent. People who are only mildly ill and have no risk factors for complications usually do not need to be treated with antiviral medication. - Billing Disposition and Condition Condition: STABLE Disposition: Home
[2020-01-18 12:26] LABS: Influenza A Molecular POSITIVE (Negative)
== END 2020-01-18 12:42 | disposition home or self-care (01) ==
LOC: UCEAST 10:23
DX: J11.1 Influenza due to unidentified influenza virus with other respiratory manifestations (principal); I10 Essential (primary) hypertension; F17.210 Nicotine dependence, cigarettes, uncomplicated; Z88.0 Allergy status to penicillin; Z79.899 Other long term (current) drug therapy
CPT/HCPCS: 99211; G0463